=== PATIENT | female | born 1935 | race Two or more races ===

== ENCOUNTER 2018-04-09 00:03 | Inpatient (IN) | payer MEDICAID, MEDICARE, OTHER | END 2018-04-16 13:06 | disposition home or self-care (01) | LOC: ER 00:03 → ED HOLD 02:26 → SUR 3N 03:05 | DX: A41.9 Sepsis, unspecified organism (principal); J18.1 Lobar pneumonia, unspecified organism; E87.6 Hypokalemia; I10 Essential (primary) hypertension; R10.9 Unspecified abdominal pain ==